=== PATIENT | male | born 1945 | race Caucasian/White ===

== ENCOUNTER 2018-09-15 11:17 | Inpatient (IN) ==
[2018-09-15] MEDS ORDERED: Sod Chloride 0.9% Inj 1,000 ML IV.SIG ONE (12:04)
[2018-09-15 12:34] LABS: Hematocrit 36.2 % (39.0-51.0); Hemoglobin 12.9 gm/dL (13.0-17.0); Mean Corpuscular HGB Conc 35.5 % (32.0-36.0); Mean Corpuscular Hemoglobin 34.1 pg (27.0-34.0); Mean Corpuscular Volume 96.1 fL (80.0-100.0); Mean Platelet Volume 7.2 fL (7.0-11.0); Platelet Count 317 th/mm3 (150-450); Red Blood Count 3.77 mil/mm3 (4.50-5.90); Red Cell Distribution Width 15.2 % (11.6-17.2); White Blood Count 11.7 th/mm3 (4.0-11.0)
--- NOTE | 2018-09-15 12:37 | XR ---
EXAM DATE: 09/15/2018 12:30 PM EST AGE/SEX: 73 years / Male INDICATIONS: Fever, flu symptoms, general weakness and very short of breath for 5 days. CLINICAL DATA: This is the patient's initial encounter. Patient reports that signs and symptoms have been present for 4 - 6 days and indicates a pain score of 0/10. MEDICAL/SURGICAL HISTORY: Carcinoma, lung. Chronic obstructive pulmonary disease. . left lower lung lobectomy COMPARISON: [facility] – [place], CHEST SINGLE AP, 01/02/2015. . FINDINGS: A single AP view of the chest demonstrates the lungs to be symmetrically aerated without evidence of mass, infiltrate or effusion. Mild stable elevation of left hemidiaphragm. The cardiomediastinal cont ours are unremarkable. Osseous structures are intact. CONCLUSION: No acute intrathoracic disease. No significant change compared to the prior study. Electronically signed by: Jose Bennett MD Board Certified Radiologist 09/15/2018 12:36 PM EST
[2018-09-15 13:00] LABS: Alanine Aminotransferase 23 U/L (12-78); Albumin 3.3 g/dL (3.4-5.0); Anion Gap 9 meq/L (5-15); Aspartate Aminotransferase 25 U/L (15-37); Blood Urea Nitrogen 24 mg/dL (7-18); Calcium 8.5 mg/dL (8.5-10.1); Carbon Dioxide 21.9 meq/L (21.0-32.0); Chloride 96 meq/L (98-107); Glomerular Filtration Rate 43 mL/min (>89); Glucose,Random 114 mg/dL (74-106); Potassium 4.3 meq/L (3.5-5.1); Sodium 127 meq/L (136-145)
[2018-09-15 13:04] LABS: Alkaline Phosphatase 89 U/L (45-117); Creatine Kinase 101 U/L (39-308); Total Protein 8.6 g/dL (6.4-8.2)
[2018-09-15 13:09] LABS: Lymphocytes 5 % (9-44); Monocytes 5 % (0-8)
[2018-09-15 13:11] LABS: Platelet Estimate Normal (Normal); Platelet Morphology Normal (Normal); Toxic Granulation 1+
[2018-09-15 13:12] LABS: Dohle Bodies Present
[2018-09-15] MEDS ORDERED: Aztreonam Inj 2 GM in Sodium Chloride 0.9% Inj 100 ML IV.SIG STA (13:28)
[2018-09-15] MEDS ORDERED: Acetaminophen 325 MG Tablet PO PRN (13:58)
[2018-09-15] MEDS ORDERED: Bisacodyl 10 MG Supp RECTAL PRN (13:58)
[2018-09-15] MEDS ORDERED: Simethicone 80 MG Chew Tablet PO PRN (14:02)
[2018-09-15] MEDS ORDERED: Artificial Tears Opth Drops 15 ML Bottle EACH EYE PRN (15:00)
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
[2018-09-15] MEDS: Sod Chloride 0.9% Inj 1,000 ML IV.CONT SCH (15:37)
--- NOTE | 2018-09-15 15:39 | ECG ---
Date Performed: 09/15/2018 Time Performed: 11:41:44 PTAGE: 73 years EKG: Baseline artifact present Sinus tachycardia Left bundle branch block Compared to prior elec trocardiogram, Rate has increased and access has rotated slightly. PREVIOUS TRACING : 01/02/2015 11.05 DOCTOR: Isaiah Mason Interpretating Date/Time 09/15/2018 15:38:38
[2018-09-15] MEDS: Heparin - SQ 10,000 UNITS/ML Vial SQ SCH (15:52)
[2018-09-15] MEDS: MethylPREDNISolone Sod Succinate Inj 40 MG/ML Vial IV.PUSH SCH (15:52)
--- NOTE | 2018-09-15 15:57 | ED ---
HPI General Chief Complaint: Fever Stated Complaint: flu Symptoms Time Seen by Provider: 09/15/18 11:43 History of Present Illness HPI Narrative: This is a 73-year-old male with history of reactive airway, GERD , who presents today with complaints of fevers and cough. The patient reports that he felt as though he had the flu. He reports that he is not been feeling any better over the last several days. He has no reported ill contacts. He reports that he normally runs a temperature in the 90s. He reports that his temp is been elevated in the low-grade at 99. There is no reported nausea vomiting. There is reported cough and dyspnea. His O2 sat was in the 80s in triage. Related Data Home Medications Medication Instructions Recorded Confirmed albuterol sulfate 2 puff INHALATION BID PRN 09/15/18 09/15/18 cholecalciferol (vitamin D3) 1,000 unit PO DAILY 09/15/18 09/15/18 loratadine 10 mg PO DAILY 09/15/18 09/15/18 olodaterol 2 inh INHALATION DAILY 09/15/18 09/15/18 omega 7-rgn-oet-fish oil [Fish Oil] 1 cap PO HS 09/15/18 09/15/18 pantoprazole 40 mg PO BID 09/15/18 09/15/18 polyvinyl alcohol [Artificial 1 drp OPHTHALMIC (EYE) TID-QID PRN 09/15/18 Tears (polyvin alc)] MDD 4 simethicone 80 mg PO QID PRN 09/15/18 09/15/18 valproic acid 250 mg PO DAILY 09/15/18 09/15/18 valproic acid 500 mg PO HS 09/15/18 09/15/18 Allergies Allergy/AdvReac Type Severity Reaction Status Date / Time penicillin G Allergy Severe Nausea/Vomi Verified 09/15/18 11:53 ting shellfish derived Allergy Severe Swelling Verified 09/15/18 12:16 of Lip/Tongue/Throat Review of Systems ROS: all other systems reviewed are negative Constitutional Reports chills and Reports fever(s) Eyes Reports system reviewed and no additional complaints, except as docu ENT Reports system reviewed and no additional complaints, except as docu Cardiovascular Denies chest pain, Reports dyspnea and Denies orthopnea Respiratory Reports chest congestion, Reports cough and Reports dyspnea Gastrointestinal Denies abdominal pain, Denies nausea and Denies vomiting Genitourinary Reports system reviewed and no additional complaints, except as [facility] Musculoskeletal Reports system reviewed and no additional complaints, except as [facility] Neurologic Reports system reviewed and no additional complaints, except as [facility] PMFSH Medical History Medical History Abdominal aortic aneurysm (AAA) (Acute) COPD (chronic obstructive pulmonary disease) (Acute) Emphysema of lung (Acute) Esophageal stricture (Acute) GERD (gastroesophageal reflux disease) (Acute) History of chemotherapy (Acute) Lung cancer (Acute) Surgical History Surgical History S/P lobectomy of lung (Acute) Social History Social History Substance History: No History of Abuse Second Hand Smoke Exposure: No Smoking Status: Former smoker Tobacco Type: Cigarettes How Often Do You Have a Drink Containing Alcohol: Never Recent Travel in [facility] within the Last 8 Weeks: No Recent Out of Country Travel within the Last 8 Weeks: No Immunization History Tetanus Immunization: <5 Years Exam Narrative Exam Narrative: GENERAL: Well-developed well-nourished male in moderate respiratory discomfort SKIN: Focused skin assessment warm/dry. HEAD: Atraumatic. Normocephalic. EYES: Pupils equal and round. No scleral icterus. No injection or drainage. ENT: No nasal bleeding or discharge. Mucous membranes pink and moist. NECK: Trachea midline. Supple. No JVD. CARDIOVASCULAR: Regular rate and rhythm. No murmur appreciated. RESPIRATORY: Rales appreciated at the right lung base. Left lung gardner appear clear. GASTROINTESTINAL: Abdomen soft, non-tender, nondistended. No rebound or guarding. MUSCULOSKELETAL: No obvious deformities. No clubbing. No cyanosis. No edema. NEUROLOGICAL: Awake and alert. No obvious cranial nerve deficits. Motor grossly within normal limits. Normal speech. Course Initial Documented Vital Signs Temperature 98.9 F 09/15/18 11:25 Pulse Rate 121 H 09/15/18 11:25 Respiratory Rate 28 H 09/15/18 11:25 Blood Pressure 137/78 09/15/18 11:25 Pulse Oximetry 92 L 09/15/18 11:25 Last Documented Vital Signs Temperature 99.7 F H 09/15/18 15:30 Pulse Rate 124 H 09/15/18 15:30 Respiratory Rate 32 H 09/15/18 15:30 Blood Pressure 175/70 H 09/15/18 15:30 Pulse Oximetry 95 09/15/18 15:30 Medical Decision Making MDM Narrative Medical decision making narrative: This is a 73-year-old male presents with complaints of fever cough and shortness of breath. Patient has rales appreciated in his right lung field. Chest x-ray shows no obvious infiltrate however clinically he has a pneumonia. His white blood cell count shows a bandemia. Patient's lactic acid was also 2.2. He has been started on Rocephin and Zithromax. Case was discussed with the [facility] hospitalist. The patient will be admitted as a full admission. Medical Screen Exam Complete: Yes Emergency Medical Condition: Yes Differential Diagnosis Differential Diagnosis: Ammonia versus bronchitis versus influenza versus metabolic derangement Lab Data Result diagrams: 09/15/18 12:00 09/15/18 12:00 Lab Results 09/15/18 09/15/18 09/15/18 Range/Units 12:00 12:00 12:10 WBC 11.7 H (4.0-11.0) th/mm3 RBC 3.77 L (4.50-5.90) mil/mm3 Hgb 12.9 L (13.0-17.0) gm/dL Hct 36.2 L (39.0-51.0) % MCV 96.1 (80.0-100.0) fL MCH 34.1 H (27.0-34.0) pg MCHC 35.5 (32.0-36.0) % RDW 15.2 (11.6-17.2) % Plt Count 317 (150-450) th/mm3 MPV 7.2 (7.0-11.0) fL Prelim Diff (Auto) Manual diff required WBC Differential Manual diff final Seg Neuts % (Manual) 64 (16-70) % Band Neuts % (Manual) 26 H (0-6) % Lymphocytes % (Manual) 5 L (9-44) % Monocytes % (Manual) 5 (0-8) % Abs Neuts (Manual) 10.5 H (1.8-7.7) th/mm3 Differential Comment . Toxic Granulation 1+ H (None) Dohle Bodies Present H (None) Platelet Estimate Normal (Normal) Platelet Morphology Normal (Normal) Sodium 127 L (136-145) meq/L Potassium 4.3 (3.5-5.1) meq/L Chloride 96 L (98-107) meq/L Carbon Dioxide 21.9 (21.0-32.0) meq/L Anion Gap 9 (5-15) meq/L BUN 24 H (7-18) mg/dL Creatinine 1.58 H (0.60-1.30) mg/dL Estimated GFR 43 L (>89) mL/min Random Glucose 114 H (74-106) mg/dL Lactic Acid 2.2 H (0.4-2.0) mmol/L Calcium 8.5 (8.5-10.1) mg/dL Total Bilirubin 1.6 H (0.2-1.0) mg/dL AST 25 (15-37) U/L ALT 23 (12-78) U/L Alkaline Phosphatase 89 (45-117) U/L Total Creatine Kinase 101 (39-308) U/L CK-MB (CK-2) 2.0 (0.5-3.6) ng/mL Troponin I Less than 0.02 L (0.02-0.05) ng/mL Total Protein 8.6 H (6.4-8.2) g/dL Albumin 3.3 L (3.4-5.0) g/dL Imaging Data Radiologist's impression: Chest X-Ray 09/15/18 12:04 CONCLUSION: No acute intrathoracic disease. No significant change compared to the prior study. Discharge Plan Discharge Disposition Patient Disposition: ED Admit(ED Internal Use Only) Discharge Order Discharge Orders: ED Use Only Admit Order (Routine); Ordered 09/15/18 Ordered By: Jacinto Oglesby Discharge Details Diagnosis: Pneumonia, Hypoxia, Tachycardia Physicians Team ED Provider: Jacinto Oglesby Primary Care Provider: [facility] Attending Provider: Katheryn Brownlee Discharge Interventions Interventions: Vital Signs Last Done: 09/15/18 11:50 Status ED Status: Admitted Patient
[2018-09-15] MEDS ORDERED: Non-Formulary Drug (Omega 3-Dha-Epa-Fish Oil [Fish Oil] 1 CAP) PO SCH (21:00)
[2018-09-15] MEDS: Senna/Docusate Sodium 8.6/50 MG Tablet PO SCH (22:21)
[2018-09-16] MEDS: Sod Chloride 0.9% Inj 1,000 ML IV.CONT SCH ×4 (00:26→18:31)
[2018-09-16] MEDS: MethylPREDNISolone Sod Succinate Inj 40 MG/ML Vial IV.PUSH SCH ×3 (00:27→15:33)
[2018-09-16] MEDS: Heparin - SQ 10,000 UNITS/ML Vial SQ SCH ×2 (02:59→15:33)
[2018-09-16] MEDS: Loratadine 10 MG Tablet PO SCH (08:10)
[2018-09-16] MEDS: Senna/Docusate Sodium 8.6/50 MG Tablet PO SCH ×2 (08:10→21:22)
[2018-09-16] MEDS ORDERED: OLODATEROL INH SCH (09:00)
[2018-09-16 10:34] LABS: Hematocrit 31.3 % (39.0-51.0); Hemoglobin 10.6 gm/dL (13.0-17.0); Mean Corpuscular HGB Conc 33.9 % (32.0-36.0); Mean Corpuscular Hemoglobin 33.2 pg (27.0-34.0); Mean Corpuscular Volume 97.8 fL (80.0-100.0); Mean Platelet Volume 8.4 fL (7.0-11.0); Platelet Count 298 th/mm3 (150-450); Red Cell Distribution Width 15.3 % (11.6-17.2); White Blood Count 11.7 th/mm3 (4.0-11.0)
[2018-09-16 11:07] LABS: Carbon Dioxide 19.1 meq/L (21.0-32.0); Potassium 3.3 meq/L (3.5-5.1)
[2018-09-16 11:34] LABS: Burr Cells 1+; Lymphocytes 3 % (9-44); Monocytes 1 % (0-8); Ovalocytes 1+; Platelet Estimate Normal (Normal); Platelet Morphology Normal (Normal); Toxic Granulation 1+
--- NOTE | 2018-09-16 18:11 | P.PNIM ---
Subjective Interval history: 73-year-old white male admitted with acute exacerbation of COPD and pneumonia Patient seen and examined, doing better today, still with moderate shortness of breath with minimal exertion, cough is clearing, denies fever or chills no chest pain Physical Exam Vital signs: Vital Signs 09/15/18 20:00 09/15/18 23:35 09/16/18 00:37 Temperature 98.1 F 96.0 F L Pulse Rate 112 H 101 H 80 Respiratory Rate 20 20 16 Blood Pressure 138/77 125/65 Pulse Oximetry 94 L 96 96 09/16/18 03:35 09/16/18 04:01 09/16/18 07:53 Temperature 96.6 F L Pulse Rate 98 H 67 91 H Respiratory Rate 18 16 18 Blood Pressure 110/59 L Pulse Oximetry 96 95 09/16/18 08:00 09/16/18 11:18 09/16/18 12:00 Temperature 96.2 F L 97.1 F L Pulse Rate 109 H 104 H 90 Respiratory Rate 16 18 14 Blood Pressure 121/63 131/73 Pulse Oximetry 98 99 09/16/18 15:58 09/16/18 16:00 Temperature 97.7 F Pulse Rate 102 H 102 H Respiratory Rate 18 15 Blood Pressure 126/73 Pulse Oximetry 98 Intake & Output 09/15/18 09/16/18 09/16/18 18:59 06:59 18:59 Intake Total 1350 / 1350 1580 / 1580 1000 / 1000 Output Total 150 / 150 Balance 1350 / 1350 1430 / 1430 1000 / 1000 Weight 80.739 kg Intake: IV 1350 / 1350 1100 / 1100 1000 / 1000 NS Inj 1,000 ML @ 100 mls/hr IV 1000 / 1000 1000 / 1000 .CONT .Q10H ELIOT Rx#:[id number] Azactam Inj 1,000 MG In NS Inj 100 / 100 100 ML @ 200 mls/hr IV.SIG Q12H ELIOT Rx#:[id number] Azactam Inj 2 GM In NS Inj 100 100 / 100 ML @ 200 mls/hr IV.SIG STAT STA Rx#:[id number] Levaquin 750 mg Premix Inj 150 250 / 250 ML @ 100 mls/hr IV.SIG STAT STA Rx#:[id number] NS Inj 1,000 ML @ Wide Open IV. 1000 / 1000 SIG BOLUS ONE Rx#:[id number] Oral 480 / 480 Output: Urine 150 / 150 Results Labs CBC & Chem 7: 09/16/18 09:06 09/16/18 08:46 Labs: Microbiology 09/15/18 11:59 Blood - Peripheral Aerobic Blood Culture - Preliminary No growth in 1 day 09/15/18 11:59 Blood - Peripheral Anaerobic Blood Culture - Preliminary No growth in 1 day 09/15/18 12:09 Blood - Peripheral Aerobic Blood Culture - Preliminary No growth in 1 day 09/15/18 12:09 Blood - Peripheral Anaerobic Blood Culture - Preliminary No growth in 1 day Assessment and Plan Plan ACUTE HYPOXIC RESP FAILURE - due to copd /pna - o2 supportive tx SEPSIS w bandemia, due to pna - PNA - fu cx, check legionella, iv levaquin and azactam ACUTE EXACERBATION COPD - w significant bronchospasm - cont ivf steroids for now , nebs GERD w esophageal stricture - cont ppi SEIZURE DO - cont home meds LUNG CA post LLL lobectomy and chemo/radiation - outpt followup DEHYDRATION w hyponatremia and akd - cont ivf - dvt prophylaxis - sc heparin dispo home when stable, may need home oxygen Progress Note: Quality VTE Deep Vein Thrombosis/Pulmonary Embolism Present on Admission: No
[2018-09-16] MEDS ORDERED: Potassium Bicarbonate 25 MEQ Effervescent Tablet PO ONE (18:13)
[2018-09-17] MEDS: Heparin - SQ 10,000 UNITS/ML Vial SQ SCH ×2 (02:55→15:15)
[2018-09-17] MEDS: Sod Chloride 0.9% Inj 1,000 ML IV.CONT SCH ×3 (02:56→15:16)
[2018-09-17] MEDS: Loratadine 10 MG Tablet PO SCH (08:38)
[2018-09-17] MEDS: MethylPREDNISolone Sod Succinate Inj 40 MG/ML Vial IV.PUSH SCH ×2 (08:38)
[2018-09-17] MEDS: Senna/Docusate Sodium 8.6/50 MG Tablet PO SCH ×2 (08:38→20:43)
[2018-09-17] MEDS: predniSONE 20 MG Tablet PO SCH ×2 (15:15→20:43)
--- NOTE | 2018-09-17 16:11 | P.PNIM ---
Subjective Interval history: 73-year-old white male admitted with COPD exacerbation and pneumonia Patient seen doing better today, had significant cough of yellow thick sputum yesterday, and feeling improved today denies chest pain or nausea Physical Exam Vital signs: Vital Signs 09/16/18 19:50 09/16/18 20:00 09/17/18 00:00 Temperature 97.6 F 97.2 F L Pulse Rate 110 H 107 H 101 H Respiratory Rate 20 18 18 Blood Pressure 148/72 H 141/72 H Pulse Oximetry 97 93 L 95 09/17/18 04:00 09/17/18 07:55 09/17/18 08:45 Temperature 97.5 F L 97.4 F L Pulse Rate 99 H 94 H Respiratory Rate 18 18 Blood Pressure 138/68 134/78 Pulse Oximetry 96 97 95 09/17/18 11:45 Temperature 97.4 F L Pulse Rate 94 H Respiratory Rate 18 Blood Pressure 143/72 H Pulse Oximetry 95 Intake & Output 09/16/18 09/17/18 09/17/18 18:59 06:59 18:59 Intake Total 2570 / 2570 1420 / 1420 1000 / 1000 Output Total 400 / 400 600 / 600 Balance 2170 / 2170 820 / 820 1000 / 1000 Weight 80.739 kg Intake: IV 2250 / 2250 1100 / 1100 1000 / 1000 NS Inj 1,000 ML @ 100 mls/hr IV 2000 / 2000 1000 / 1000 1000 / 1000 .CONT .Q10H ELIOT Rx#:[id number] Azactam Inj 1,000 MG In NS Inj 100 / 100 100 / 100 100 ML @ 200 mls/hr IV.SIG Q12H ELIOT Rx#:[id number] Levaquin 750 mg Premix Inj 150 150 / 150 ML @ 100 mls/hr IV.SIG Q24H ELIOT Rx#:[id number] Oral 320 / 320 320 / 320 Output: Urine 400 / 400 600 / 600 Other: Date of Last Bowel Movement 09/15/18 Narrative: Well-developed well-nourished 73-year-old white male Awake alert oriented no acute distress Heart S1-S2 regular Lungs much improved air movement improved wheeze, less rhonchi Abdomen soft nondistended positive bowel sounds Extremities no clubbing cyanosis no edema Results Labs CBC & Chem 7: 09/16/18 09:06 09/16/18 08:46 Labs: Microbiology 09/15/18 11:59 Blood - Peripheral Aerobic Blood Culture - Preliminary No growth in 2 days 09/15/18 11:59 Blood - Peripheral Anaerobic Blood Culture - Preliminary No growth in 2 days 09/15/18 12:09 Blood - Peripheral Aerobic Blood Culture - Preliminary No growth in 2 days 09/15/18 12:09 Blood - Peripheral Anaerobic Blood Culture - Preliminary No growth in 2 days Assessment and Plan Plan ACUTE HYPOXIC RESP FAILURE - due to copd /pna - o2 supportive tx, wean oxygen as tolerated SEPSIS w bandemia, due to pna -changed to p.o. Levaquin, blood cultures negative to date PNA - fu cx, check legionella, iv levaquin and azactam changed to p.o. Levaquin ACUTE EXACERBATION COPD - w significant bronchospasm -changed to oral steroids for now, nebs as needed GERD w esophageal stricture - cont ppi SEIZURE DO - cont home meds LUNG CA post LLL lobectomy and chemo/radiation - outpt followup DEHYDRATION w hyponatremia and akd -stop IV fluids dvt prophylaxis - sc heparin dispo home when stable, may need home oxygen will get O2 walk test in a.m. Progress Note: Quality VTE Deep Vein Thrombosis/Pulmonary Embolism Present on Admission: No
[2018-09-17] MEDS: guaiFENesin 600 MG ER Tablet PO SCH (20:43)
[2018-09-18] MEDS: Sod Chloride 0.9% Inj 1,000 ML IV.CONT SCH ×3 (01:28→23:59)
[2018-09-18] MEDS: Heparin - SQ 10,000 UNITS/ML Vial SQ SCH ×3 (02:39→21:12)
[2018-09-18] MEDS: Loratadine 10 MG Tablet PO SCH (09:15)
[2018-09-18] MEDS: guaiFENesin 600 MG ER Tablet PO SCH ×2 (09:15→21:12)
[2018-09-18] MEDS: Senna/Docusate Sodium 8.6/50 MG Tablet PO SCH ×2 (09:16→21:13)
[2018-09-18] MEDS: predniSONE 20 MG Tablet PO SCH ×2 (09:16→21:12)
[2018-09-18] MEDS: levoFLOXacin 750 MG Tablet PO SCH (09:16)
[2018-09-18] MEDS ORDERED: Artificial Tears Opth Drops 15 ML Bottle EACH EYE PRN (09:47)
--- NOTE | 2018-09-18 16:25 | P.DCO ---
Home Health Nursing Order: Medical education, Signs/symptoms of disease process, Oxygen administration education, Medication education-adverse effect and Nursing assessment with vital signs Case Management Consult Case Management Consult-Home Health: Yes I have seen patient Syed Maurer on 09/18/18. My clinical findings support the need for the requested home health care services because: Patient has SOB and Deconditioned with increased weakness I certify that my clinical findings support that this patient is homebound because: Hx COPD - exertion dyspnea/weakness
--- NOTE | 2018-09-18 16:35 | P.PNIM ---
Subjective Interval history: 73-year-old white male admitted with COPD exacerbation and pneumonia with new hypoxic respiratory failure Doing much better today, still some sputum production, feeling a little anxious , still on 4 L nasal cannula 6-minute walk test he desaturated 86%, Physical Exam Vital signs: Vital Signs 09/17/18 20:00 09/17/18 20:25 09/18/18 00:00 Temperature 97.7 F 97.4 F L Pulse Rate 99 H 102 H 95 H Respiratory Rate 15 17 16 Blood Pressure 141/76 H 150/74 H Pulse Oximetry 97 98 97 Pulse Oximetry [Resting on Room Air] Pulse Oximetry [Resting with Oxygen] 09/18/18 04:00 09/18/18 08:15 09/18/18 08:40 Temperature 97.7 F 97.3 F L Pulse Rate 99 H 80 104 H Respiratory Rate 17 24 20 Blood Pressure 122/88 169/75 H Pulse Oximetry 94 L 96 Pulse Oximetry [Resting on Room Air] Pulse Oximetry [Resting with Oxygen] 09/18/18 11:55 09/18/18 15:44 Temperature Pulse Rate Respiratory Rate Blood Pressure Pulse Oximetry 96 Pulse Oximetry [Resting on Room Air] 86 L Pulse Oximetry [Resting with Oxygen] 95 Intake & Output 09/17/18 09/18/18 09/18/18 18:59 06:59 18:59 Intake Total 1610 / 1610 1580 / 1580 1000 / 1000 Output Total 350 / 350 700 / 700 Balance 1260 / 1260 880 / 880 1000 / 1000 Weight 83.5 kg Intake: IV 1250 / 1250 1100 / 1100 1000 / 1000 NS Inj 1,000 ML @ 100 mls/hr IV 1000 / 1000 1000 / 1000 1000 / 1000 .CONT .Q10H [facility] Rx#:[id number] Azactam Inj 1,000 MG In NS Inj 100 / 100 100 / 100 100 ML @ 200 mls/hr IV.SIG Q12H [facility] Rx#:[id number] Levaquin 750 mg Premix Inj 150 150 / 150 ML @ 100 mls/hr IV.SIG Q24H [facility] Rx#:[id number] Oral 360 / 360 480 / 480 Output: Urine 350 / 350 700 / 700 Narrative: Well-developed well-nourished 73-year-old white male Awake alert oriented no acute distress Heart S1-S2 regular Lungs improved air movement improved wheeze, less rhonchi Abdomen soft nondistended positive bowel sounds Extremities no clubbing cyanosis no edema Results Labs CBC & Chem 7: 09/16/18 09:06 09/16/18 08:46 Labs: Microbiology 09/15/18 11:59 Blood - Peripheral Aerobic Blood Culture - Preliminary No growth in 3 days 09/15/18 11:59 Blood - Peripheral Anaerobic Blood Culture - Preliminary No growth in 3 days 09/15/18 12:09 Blood - Peripheral Aerobic Blood Culture - Preliminary No growth in 3 days 09/15/18 12:09 Blood - Peripheral Anaerobic Blood Culture - Preliminary No growth in 3 days Assessment and Plan Plan ACUTE HYPOXIC RESP FAILURE - due to copd /pna - o2 supportive tx, wean oxygen but still on 4 l, requires home o2 per walk test, dw cm SEPSIS w bandemia, due to pna -changed to p.o. Levaquin, blood cultures negative to date PNA - fu cx, check legionella, iv levaquin and azactam changed to p.o. Levaquin , mycoplasma ACUTE EXACERBATION COPD - w significant bronchospasm -changed to oral steroids for now, nebs as needed, home w taper prednisone GERD w esophageal stricture - cont ppi SEIZURE DO - cont home meds LUNG CA post LLL lobectomy and chemo/radiation - outpt followup DEHYDRATION w hyponatremia and akd -stop IV fluids ANEMIA - post hydration no acute bleeding noted, fu dvt prophylaxis - sc heparin dispo home tomorrow when oxygen arranged. Progress Note: Quality VTE Deep Vein Thrombosis/Pulmonary Embolism Present on Admission: No
[2018-09-19 07:15] LABS: Hematocrit 32.5 % (39.0-51.0); Hemoglobin 11.3 gm/dL (13.0-17.0)
[2018-09-19 07:46] VITALS: PULSE 87
[2018-09-19 08:37] VITALS: BP 167/72; RESP 20; TEMP 97.5; O2SAT 93
--- NOTE | 2018-09-19 08:51 | P.DS ---
DS: Providers Date of admission: 09/15/18 13:45 Primary care physician: [facility] Brief History from admission: HPI as documented by the admitting physician: 73yo w m w hx of lung ca presents to the ED with complaint of Shortness of breath that has been progressing over the past 5 days. He states he has had worsening sputum yellow production and fever as high as 102.9, he has had diarrhea for the past two days as well, joint and muscle aches and pains all over as well as anorexia and weakness. In the Emergency room he was found to be tachycardic, tachypneic and hypoxic in the 80s, normally he doesn't require oxygen. Patient update on day of discharge: Patient reports he is feeling better today. Stable on nasal cannula. We discussed discharge planning at length. DS: Summary 73-year-old male admitted with acute hypoxic respiratory failure secondary to COPD exacerbation and pneumonia. The patient was admitted and treated with IV antibiotics, steroids, supplemental oxygen. His condition improved. He is discharged on oral antibiotics and steroids. He does require home oxygen. He is discharged with home oxygen. He will follow-up with pulmonology at the [facility]. Other conditions treated include: SEPSIS w bandemia, due to pna -changed to p.o. Levaquin, blood cultures negative to date GERD w esophageal stricture - cont ppi SEIZURE DO - cont home meds LUNG CA post LLL lobectomy and chemo/radiation - outpt followup Time Spent with Patient Total time spent providing and/or coordinating discharge services: Greater than 30 minutes Quality: VTE Deep Vein Thrombosis/Pulmonary Embolism Present on Admission: No Exam Narrative Exam Narrative: GENERAL: Elderly male in no acute distress. CARDIOVASCULAR: Normal rate and regular rhythm without murmurs, gallops, or rubs. RESPIRATORY: Air movement is fair. Faint end expiratory wheezing. Otherwise mostly clear. GASTROINTESTINAL: Abdomen soft, non-tender, non-distended. Normal active bowel sounds MUSCULOSKELETAL: Extremities without cyanosis, or edema. NEURO: Alert & Oriented x4 to person, place, time, situation. Moves all ext x4 PSYCH: Appropriate mood and affect. Results Labs on day of discharge: Labs from last 24 hours 09/19/18 06:30 Hgb 11.3 L Hct 32.5 L Preliminary micro results at discharge 09/15/18 11:59 Aerobic Blood Culture - Preliminary Blood - Peripheral No growth in 3 days Anaerobic Blood Culture - Preliminary No growth in 3 days 09/15/18 12:09 Aerobic Blood Culture - Preliminary Blood - Peripheral No growth in 3 days Anaerobic Blood Culture - Preliminary No growth in 3 days Impressions ITS Impressions Chest X-Ray 09/15/18 12:04 CONCLUSION: No acute intrathoracic disease. No significant change compared to the prior study. Discharge Plan Discharge Disposition Patient Disposition: W/Home Health Service Discharge Condition Condition: Good Discharge Order Discharge Orders: Discharge Order (Routine); Ordered 09/19/18 Ordered By: Luna Mccabe Physicians Team Primary Care Provider: [facility] Attending Provider: Luna Mccabe Rxs /Orders / Referrals /Forms Prescriptions: New levofloxacin 750 mg Tablet 750 mg PO DAILY Qty: 4 RF: 0 guaifenesin [Mucinex] 600 mg Tablet Extended Release 12hr 600 mg PO BID Qty: 10 RF: 0 prednisone 20 mg tablet 20 mg PO DAILY Qty: 9 RF: 0 Continue albuterol sulfate 90 mcg/actuation Hfa Aerosol Inhaler 2 puff INHALATION BID PRN (Reason: Dyspnea) RF: 0 polyvinyl alcohol [Artificial Tears (polyvin alc)] 1.4 % Drops 1 drp OPHTHALMIC (EYE) TID-QID MDD 4 PRN (Reason: Abdominal Discomfort) RF: 0 valproic acid 250 mg Capsule 500 mg PO HS RF: 0 valproic acid 250 mg Capsule 250 mg PO DAILY RF: 0 pantoprazole 40 mg Tablet,Delayed Release (Dr/Ec) 40 mg PO BID RF: 0 loratadine 10 mg Tablet 10 mg PO DAILY RF: 0 simethicone 80 mg Tablet,Chewable 80 mg PO QID PRN (Reason: Abdominal Discomfort) RF: 0 cholecalciferol (vitamin D3) 1,000 unit Capsule 1,000 unit PO DAILY RF: 0 omega 5-bfo-lme-fish oil [Fish Oil] 1,000 mg (120 mg-180 mg) Capsule 1 cap PO HS RF: 0 olodaterol 2.5 mcg/actuation Mist 2 inh INHALATION DAILY RF: 0 Ambulatory Orders / Order Sets / DME: Oxygen Tank (2-5 liter) (Routine) Timeframe: 99 Days Location: Determined by Patient Ordered By: Katheryn Brownlee Oxygen Tank (2-5 liter) (Routine) Location: Determined by Patient Ordered By: Luna Mccabe Referrals: [facility] [Primary Care Provider] - See Instructions Discharge Instructions Patient Printed Instructions: Prednisone (By mouth), Guaifenesin (By mouth), Levofloxacin (By mouth) Post Discharge Care Plan Care Plan Goals: Discharge Care Plan Goals for Pneumonia You have been diagnosed with pneumonia. This is a serious lung infection. Most cases of pneumonia are caused by bacteria. Pneumonia most often occurs in older adults, young children, and people with chronic health problems. Directions to Meet your Goals: 1. Home care: * Take your medicine exactly as directed. Dont skip doses. Continue taking your antibiotics as until they are all gone, even if you start to feel better. This will prevent the pneumonia from coming back. * Drink at least 8 glasses of water daily, unless directed otherwise. This helps to loosen and thin secretions so that you can cough them up. * Use a cool-mist humidifier in your bedroom. Be sure to clean the humidifier daily. * Dont use medicines to suppress your cough unless your cough is dry, painful, or interferes with your sleep. Coughing up mucus is normal. You may use an expectorant if your doctor says its okay. * You can use warm compresses or a heating pad on the lowest setting to relieve chest discomfort. Use several times a day for 15-20 minutes at a time. To prevent injury to your skin, set the temperature to warm, not hot. Dont put the compress or pad directly on your skin. Make certain it has a cover or wrap it in a towel. This is to prevent skin allan. * Get plenty of rest until your fever, shortness of breath, and chest pain go away. * Plan to get a flu shot every year. The flu is a common cause of pneumonia. Getting a flu shot every year can help prevent both the flu and pneumonia. 2. Getting the pneumococcal vaccine: * Talk with your doctor about getting the pneumococcal vaccine. Pneumococcal pneumonia is caused by bacteria that spread from person to person. It can cause minor problems, such as ear infections. But it can also turn into life- threatening illnesses of the lungs (pneumonia), the covering of the brain and spinal cord (meningitis), and the blood (bacteremia). * Make sure to ask your doctor if you should have the vaccine. Children under 2 years of age, adults over age 65, people with certain health conditions, and smokers are at the highest risk of pneumococcal disease. This vaccine can help prevent pneumococcal disease in both adults and children. 3. Follow-up care: Do Not miss your follow-up appointment. Keep up with all your appointments and yearly check ups 4. When to call your doctor: Call your doctor immediately if you have any of the following: Fever of 100.4F (38C) or higher, or as directed by your healthcare provider Mucus from the lungs (sputum) thats yellow, green, bloody, or smells bad Vomiting Any symptoms that get worse 5. Call 911: Call 911 right away if you have any of the following: Chest pain Trouble breathing Blue lips or fingernails Status ED Status: Left Department Discharge Information Discharge Date/Time: 09/19/18 13:18
[2018-09-19] MEDS ORDERED: Lisinopril 5 MG Tablet PO SCH (09:00)
[2018-09-19] MEDS: levoFLOXacin 750 MG Tablet PO SCH (09:23)
[2018-09-19] MEDS: Sod Chloride 0.9% Inj 1,000 ML IV.CONT SCH (09:23)
[2018-09-19] MEDS: Senna/Docusate Sodium 8.6/50 MG Tablet PO SCH (09:23)
[2018-09-19] MEDS: guaiFENesin 600 MG ER Tablet PO SCH (09:24)
[2018-09-19] MEDS: Loratadine 10 MG Tablet PO SCH (09:24)
[2018-09-19] MEDS: predniSONE 20 MG Tablet PO SCH (09:24)
[2018-09-19] MEDS: Heparin - SQ 10,000 UNITS/ML Vial SQ SCH (09:25)
== END 2018-09-19 13:18 | disposition home health service (06) | DRG 871 ==
LOC: NEPC 11:17 → NEDA 13:45 → N04 17:06
PROVIDERS: ADMIT Family Medicine; ATTEND Family Medicine
CPT/HCPCS: 71010; 71045; 80048; 80053; 82550; 82552; 83605; 84484; 85014; 85018; 85025; 86738; 87040; 87275; 87276; 87804; 90760; 93005; 94150; 94618; 94620; 94640; 94664; 94665; 96360; 99285; J1644; J1956; J2920; J7030; J7506; J7512